=== PATIENT | female | born 1985 | race African-American/Black ===

== ENCOUNTER 2017-06-10 15:57 | Emergency (ER) | payer MEDICAID ==
[~2017-06-10] VITALS: Ht 162.6 cm; Wt 110.0 kg
[2017-06-10 16:07] VITALS: BP 118/82
== END 2017-06-10 19:45 | disposition home or self-care (01) ==
LOC: ER 15:57
DX: B86 Scabies (principal)
CPT/HCPCS: 99282; Z7610